=== PATIENT | male | born 1955 | race Caucasian/White ===

== ENCOUNTER 2025-06-29 08:40 | Emergency (ER) | payer MEDICARE, SELFPAY ==
--- NOTE | 2025-06-29 08:43 | XR_ITS ---
WS: [id number] Exam: XR elbow RT min 3V* [id number] Date/Time of Exam: 06/29/2025 8:58 AM Reason For Exam: Trauma DLP: No acute fracture. Moderate degenerative change. Small joint effusion. Soft tissues are otherwise normal. XR/XR elbow RT min 3V* [id number] IMPRESSION: 1. Moderate DJD and small joint effusion.
[2025-06-29 08:49] VITALS: BP 193/97; PULSE 87; RESP 17; TEMP 36.9; O2SAT 97; BMI 41.5
--- NOTE | 2025-06-29 08:52 | ED_ITS ---
HPI - Extremity Problem General: Chief complaint: Extremity Injury, Upper Stated complaint: Right elbow pain Time Seen by Provider: 06/29/25 08:43 History of Present Illness: 62-year-old male presents emergency room complaining of left elbow pain that began overnight when he woke up he had difficult time with full range of motion of the elbow he cannot fully extend it. No history of trauma no recent falls or injuries. No numbness or tingling no signs of infection has not had any fever sweats chills. No previous injury to the elbow no previous surgeries. Associated symptoms: Deny chest pain, fever(s) or rash Related Data Previous Rx's ?Medication ?Instructions ?Recorded methylprednisolone 4 mg tablets in See Rx Instructions PO .COMPLEX 06/29/25 a dose pack (Medrol (Rory)) #21 ea Allergies Allergy/AdvReac Type Severity Reaction Status Date / Time No Known Allergies Allergy Verified 06/29/25 08:52 Review of Systems Const: Denies: fever(s) or chills Card: Denies: chest pain Resp: Denies: dyspnea GI: Denies: abdominal pain : Denies: dysuria, urinary frequency or urinary urgency Musc: Reports: joint pain; Denies: neck pain or back pain Skin/Breast: Denies: rash Physical Exam Const: COMMON NORMALS: no acute distress GENERAL APPEARANCE: cooperative and comfortable ORIENTATION/CONSCIOUSNESS: Yes awake, Yes oriented to person, Yes oriented to place and Yes oriented to time HENMT: COMMON NORMALS: normocephalic, atraumatic and hearing grossly normal bilaterally HEAD & SCALP: normocephalic and atraumatic Resp: COMMON NORMALS: normal respiratory effort, No retractions, No use of ac cessory muscles and clear to auscultation bilaterally AUSCULTATION: clear to auscultation bilaterally Cardio: COMMON NORMALS: regular rate, regular rhythm and No murmurs present (Cardio) RATE: regular rate RHYTHM: regular rhythm Extremity: COMMON NORMALS: normal to inspection, capillary refill normal, no clubbing, cyanosis or edema, no calf tenderness and no pedal edema Neuro: SENSORIUM/ORIENTATION: Yes oriented to person, Yes oriented to place and Yes oriented to time Skin: COMMON NORMALS: no rashes or lesions noted GENERAL SKIN EXAM: no rashes or lesions noted Course Vital Signs: Vital signs: Vital Signs Temperature 98.4 F 06/29/25 08:49 Pulse Rate 86 06/29/25 09:26 Respiratory Rate 17 06/29/25 08:49 Blood Pressure 140/93 06/29/25 09:26 Pulse Oximetry 95 06/29/25 09:26 Oxygen Delivery Me thod Room Air 06/29/25 08:49 MDM - Extremity (Nontraumatic) Medical Decision Making X-ray does not show any acute fracture small joint effusion. Will discharge patient on prednisone taper follow-up with primary care if not improving continue activities as tolerated. Lab Data Radiology Impressions Elbow X-Ray 06/29/25 08:43 IMPRESSION: 1. Moderate DJD and small joint effusion. All radiology interpretation(s) finalized by discharge Discharge Plan Discharge Patient Disposition: Home Clinical Impression: Effusion of elbow joint, right Condition: Stable Prescriptions: New methylprednisolone [Medrol (Rory)] 4 mg tablets,dose pack See Rx Instructions .ROUTE .COMPLEX Qty: 21 0RF Rx Instructions: orally per package directions Discharge Orders: Discharge ED (Routine); Ordered 06/29/25 Ordered By: Benny Turk Discharge Diet: Usual diet Discharge Activity: Increase activity as tolerated Patient Instructions: Opioid Safety, Pain Management, Patient Portal & Chuck Instructions Activity Restrictions/Additional Instructions: Thank you for choosing [facility] for your healthcare needs today. It is very important that you follow up as instructed or that you return to the Emergency Department should you have concerns or if your condition changes or worsens in any way. Emergency department visits are focused on emergent conditions, in some cases you may require further evaluation on an outpatient basis. You were seen in the emergency room with complaint of right elbow pain x-ray does not show any fractures. You have a small amount of fluid in the joint. Will put you on a steroid taper if your symptoms persist follow-up with your primary care doctor they can refer you to the orthopedist if that is felt appropriate. You may increase your activities as you feel able. (Please note that included in your discharge packet is information concerning opioid safety and pain management. This information is given to all patients were discharged from the ER regardless of their discharge diagnosis or the medicines they usually take or are prescribed.) Print Language: Malawian Coding Level of Care Code ED Pharmacy Technician for Shoshana Moura
[2025-06-29 09:26] VITALS: BP 140/93; PULSE 86; O2SAT 95
== END 2025-06-29 09:27 | disposition home or self-care (01) ==
PROVIDERS: Emergency Provider Family Medicine
DX: M25.421 Effusion, right elbow (principal)
CPT/HCPCS: 73080; 99283